=== PATIENT | female | born 1975 | race Two or more races ===

== ENCOUNTER 2022-12-17 11:13 | Emergency (ER) | payer OTHER ==
[~2022-12-17] VITALS: Ht 149.9 cm; Wt 63.5 kg
[2022-12-17] MEDS ORDERED: GABAPENTIN100 M2 (12:03)
[2022-12-17] MEDS ORDERED: FAMOTIDINE40 MG (12:03)
[2022-12-17] MEDS ORDERED: HYOSCYAMINE0.125 M1 (12:03)
[2022-12-17] MEDS ORDERED: PANTOPRAZOLE SO40 MG (12:03)
[2022-12-17] MEDS ORDERED: DIAZEPAM10 MG (12:03)
[2022-12-17] MEDS ORDERED: SYNTHROID50 MCG (12:03)
[2022-12-17] MEDS ORDERED: ALBUTEROL2.5 MG/3 M (12:04)
[2022-12-17] MEDS ORDERED: TRAZODONE HCL50 MG (12:04)
== END 2022-12-17 15:24 | disposition home or self-care (01) ==
LOC: EMR PED 11:13 → ER 11:13
DX: U07.1 COVID-19 (principal); E03.9 Hypothyroidism, unspecified